=== PATIENT | female | born 1995 | race Caucasian/White ===

== ENCOUNTER → 2024-03-09 13:18 | Outpatient (REF) | payer BC, SELFPAY | LOC: PNTC 13:18 | PROVIDERS: ATTENDING PHYSICIAN Obstetrics & Gynecology | DX: Z36.0 Encounter for antenatal screening for chromosomal anomalies (principal); Z36.82 Encounter for antenatal screening for nuchal translucency | CPT/HCPCS: 76801; 76813 ==

== ENCOUNTER 2024-09-23 19:24 | Inpatient (IN) | payer BC, SELFPAY ==
[2024-09-23 19:45] VITALS: BP 117/76; BMI 36.3
[2024-09-23] MEDS: CYTOTEC 25 MICROGRAM VAG (20:10)
[2024-09-23 20:12] LABS: % Basophils 0.3 % (0-2); % Eosinophils 1.1 % (0-6); % Immature Granulocytes 0.7 % (0-0.5); % Monocytes 7.7 % (1.7-9.3); % Neutrophils 70.2 % (42.2-75.2); Absolute Eosinophils 0.1 10^3/uL (0-0.7); Absolute Immature Granulocytes 0.1 10^3/uL (0-0.05); Absolute Lymphocytes 1.8 10^3/uL (1.2-3.4); Absolute Monocytes 0.7 10^3/uL (0.1-0.6); Absolute Neutrophils 6.3 10^3/uL (1.4-6.5); Hematocrit 36.5 % (37.0-47.0); Hemoglobin 12.6 g/dL (12.0-16.0); Mean Corp Hgb Conc. 34.5 g/dL (33.0-37.0); Mean Corpuscular Hgb 30.7 pg (27.0-31.0); Mean Platelet Volume 11.5 fL (7.4-10.4); Nucleated Red Blood Cells % 0 %; Platelet Count 149 10^3/uL (130-400)
[2024-09-24] MEDS: CYTOTEC 50 MICROGRAM PO (00:13)
[2024-09-24] MEDS: LR 1000 IV ×3 (00:27→10:49)
[2024-09-24] MEDS: STADOL 1 MG IV (03:00)
[2024-09-24] MEDS: CYTOTEC PO ×4 (05:52→18:39)
[2024-09-24] MEDS: PITOCIN 30 UNITS/NSS 500 ML IV (09:20)
[2024-09-24] MEDS: PRENATAL PLUS PO (10:49)
[2024-09-24] MEDS: SUBLIMAZE 100 MCG EPIDURAL (11:25)
[2024-09-24] MEDS: FENTANYL/BUPIVACAINE 100 EPIDURAL (11:25)
[2024-09-25] MEDS: MOTRIN 600 MG PO ×4 (00:27→22:03)
[2024-09-25 05:55] LABS: Hematocrit 35.3 % (37.0-47.0); Hemoglobin 12.2 g/dL (12.0-16.0)
[2024-09-25] MEDS: SENOKOT-S 1 TABLET PO (08:17)
[2024-09-25] MEDS: PRENATAL PLUS 1 TABLET PO (08:17)
[2024-09-26] MEDS: MOTRIN 600 MG PO (04:08)
[2024-09-26] MEDS: SENOKOT-S 1 TABLET PO (08:08)
[2024-09-26] MEDS: PRENATAL PLUS 1 TABLET PO (08:08)
== END 2024-09-26 11:34 | disposition home or self-care (01) | DRG 768 ==
LOC: LDRP 19:24
PROVIDERS: Obstetrics & Gynecology; ADMITTING PHYSICIAN Obstetrics & Gynecology
PROC: 3E0P7VZ Introduction of Hormone into Female Reproductive, Via Natural or Artificial Opening (ICD-10-PCS; 2024-09-23)
PROC: 3E033VJ Introduction of Other Hormone into Peripheral Vein, Percutaneous Approach (ICD-10-PCS; 2024-09-23)
PROC: 0HQ9XZZ Repair Perineum Skin, External Approach (ICD-10-PCS; 2024-09-24)
PROC: 10E0XZZ Delivery of Products of Conception, External Approach (ICD-10-PCS; 2024-09-24)
PROC: 0UQJXZZ Repair Clitoris, External Approach (ICD-10-PCS; 2024-09-24)
DX: O48.0 Post-term pregnancy (principal); Z37.0 Single live birth; Z3A.40 40 weeks gestation of pregnancy; O70.0 First degree perineal laceration during delivery; O71.89 Other specified obstetric trauma; O69.81X0 Labor and delivery complicated by cord around neck, without compression, not applicable or unspecified
CPT/HCPCS: 85014; 85018; 85025; 86780; 86850; 86900; 86901